=== PATIENT | male | born 1980 | race Caucasian/White ===

== ENCOUNTER 2017-01-13 19:55 | Emergency (ER) | payer OTHER ==
[2017-01-13 20:21] VITALS: RESP 16
[2017-01-13] MEDS ORDERED: AMOXICILLIN/CLAVULANATE POT 875/125 MG TAB PO ONE (20:51)
--- NOTE | 2017-01-13 20:51 | EDPHY ---
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 Patient is right-hand dominant. He states that he was bit by the dog only in his left palm. He denies any other trauma or injury. He believes his tetanus shot is current. The dog's rabies vaccination is up-to-date. ROS: Denies numbness or tingling in his fingers, retained foreign body. Past Medical/Surgical History: Eye surgery Social History: and lives in [place] Smoking Status: Never smoked Physical Exam: On examination the patient has a very small puncture wound to the palmar aspect of the left hand overlying hypo thenar eminence. No active bleeding noted. No ecchymosis. No swelling. No palpable bony tenderness. Full range of motion of the left hand. No tendon injury identified. No evidence of retained foreign body. No other puncture wounds noted. Constitutional: Initial Vital Signs Temperature (C) 37.2 C 01/13/17 20:18 Heart Rate 58 L 01/13/17 20:18 Respiratory Rate 16 01/13/17 20:18 Blood Pressure 142/90 H 01/13/17 20:18 O2 Sat (%) 99 01/13/17 20:18 O2 Delivery Mode Room Air Allergies/Adverse Reactions: No Known Allergies Allergy (Unverified 01/13/17 20:17) Home Medications: Medication Instructions Recorded Amoxicillin/Clavulanate Pot 875 mg PO BID #10 tab 01/13/17 [Augmentin 875 mg tab] MDM/Departure - MDM Medications Given: Discontinued Medications Amoxicillin/Clavulanate Potassium (Augmentin 875mg) 875 mg PO EDNOW ONE PRN Reason: Protocol Stop: 01/13/17 20:52 Last Admin: 01/13/17 20:56 Dose: 875 mg ED Course/Re-evaluation: 36-year-old male presents to the emergency department with dog bite to the left hand. No sutures required. The wound was thoroughly irrigated and dressing applied. The patient will be started on Augmentin to prevent infection. His tetanus shot is current. Animal Control was contacted. - Depart Disposition: Home, Routine, Self-Care Clinical Impression: Dog bite of left hand Qualifiers: Encounter type: initial encounter Qualified Code(s): S61.452A - Open bite of left hand, initial encounter Condition: Good Instructions: Animal Bite (ED) Additional Instructions: Medically cleared to return full duty. Augmentin twice daily for 5 days to prevent infection. Return if you notice any signs or symptoms of infection such as redness, swelling, increased pain, fever, purulent drainage. Ibuprofen 600 mg every 8 hours as needed for pain. Avoid any open water until the wound has completely healed as discussed. Prescriptions: Amoxicillin/Clavulanate Pot [Augmentin 875 mg tab] 875 mg PO BID #10 tab Referrals: Work Comp Ref/Restrictions [Outside] - As per Instructions
[2017-01-13 21:37] VITALS: BP 122/75; PULSE 80; TEMP 97.7; O2SAT 95
== END 2017-01-13 21:47 | disposition home or self-care (01) ==
DX: S61.452A Open bite of left hand, initial encounter (principal); W54.0XXA Bitten by dog, initial encounter; Y92.69 Other specified industrial and construction area as the place of occurrence of the external cause; Y99.0 Civilian activity done for income or pay; Y93.89 Activity, other specified